=== PATIENT | female | born 1990 | race American Indian/Alaskan Native ===

== ENCOUNTER 2017-04-11 09:51 | Emergency (ER) | payer OTHER ==
[2017-04-11 10:41] VITALS: BP 118/74
--- NOTE | 2017-04-11 10:41 | Emergency Department Report ---
Chief Complaint: Headache Stated Complaint: MIGRAINES,DIARRHEA,BACK PAIN Time Seen by Provider: 04/11/17 10:38 - HPI History of Present Illness: PT c/o "migraine" from 04-05-17- 04-09-17. PT thought her cycle was going to start, it did not. PT states she developed abd pain, lower back pain. PT states she took two home tests and they were both negative. - ROS Review of Systems: + concern for - barboza (today) + abd pain - dysuria + diarrhea - Exam Physical Exam: PT looks well, non toxic gcs 15, steady gait MSE screening note: Focused history and physical exam performed. Due to findings the following was ordered: labs ED Disposition for MSE Condition: Stable
[2017-04-11 10:54] LABS: Basophils % (Auto) 0.4 % (0.0-1.8); Eosinophils % (Auto) 3.4 % (0.0-4.3); Hematocrit 39.7 % (30.3-42.9); Hemoglobin 13.1 gm/dl (10.1-14.3); Mean Corpuscular HGB Conc 33 % (30-34); Mean Corpuscular Volume 75 fl (79-97); Platelet Count 209 K/mm3 (140-440); Red Blood Count 5.27 M/mm3 (3.65-5.03); Red Cell Distribution Width 18.6 % (13.2-15.2); White Blood Count 6.1 K/mm3 (4.5-11.0)
[2017-04-11 10:55] LABS: Mean Corpuscular Hemoglobin 25 pg (28-32)
[2017-04-11 11:25] LABS: Alanine Aminotransferase 19 units/L (7-56); Albumin 4.6 g/dL (3.9-5); Albumin/Globulin Ratio 1.5 %; Alkaline Phosphatase 55 units/L (35-129); Anion Gap 16 mmol/L; Blood Urea Nitrogen 15 mg/dL (7-17); Calcium 9.6 mg/dL (8.4-10.2); Carbon Dioxide 26 mmol/L (22-30); Chloride 101.7 mmol/L (98-107); Glucose 116 mg/dL (65-100); Lipase 25 units/L (13-60); Potassium 4.4 mmol/L (3.6-5.0); Sodium 139 mmol/L (137-145); Total Protein 7.7 g/dL (6.3-8.2)
[2017-04-11 11:32] LABS: Bilirubin,Urine NEG (Negative); Blood,Urine NEG (Negative); Ketones,Urine NEG (Negative); Leukocyte Esterase,Urine NEG (Negative); Mucus,Urine FEW /HPF; Nitrite,Urine NEG (Negative); Protein,Urine <15 mg/dL mg/dL (Negative); Urobilinogen,Urine < 2.0 mg/dL (<2.0)
--- NOTE | 2017-04-11 15:30 | XRay Report ---
Abdomen 2 views: History: Abdominal pain, diarrhea. Findings: No radiopaque calculus or abnormal calcification. No bowel distention or wall thickening. Impression: Essentially negative abdomen.
[2017-04-11] MEDS ORDERED: TORADOL IM ONE (15:38)
[2017-04-11] MEDS ORDERED: NORCO 5/325 PO ONE (15:38)
[2017-04-11] MEDS ORDERED: BENTYL PO ONE (15:38)
--- NOTE | 2017-04-11 16:41 | Emergency Department Report ---
ED Abdominal Pain HPI - General Chief Complaint: Abdominal Pain Stated Complaint: MIGRAINES,DIARRHEA,BACK PAIN Time Seen by Provider: 04/11/17 10:38 Source: patient Mode of arrival: Ambulatory Limitations: No Limitations - History of Present Illness Initial Comments: 26 year old female presents to ED with abdominal pain x1 week. patient states pain is generalized but more present in umbilical region. patient states she has had diarrhea for a couple of days which is beginning to resolve. patient denies nausea, vomiting, chest pain, dysuria, vaginal discharge or bleeding. patient denies any use of antibiotics recently. patient is stable, neurologically intact and in no acute distress. MD Complaint: abdominal pain -: Gradual, week(s) Location: diffuse, periumbilical Radiation: none Severity: mild Severity scale (0 -10): 0 Quality: cramping Consistency: constant Improves With: nothing Worsens With: nothing Associated Symptoms: diarrhea. denies: nausea, vomiting, fever, chills, dysuria , hematuria, syncope - Related Data Previous Rx's Medication Instructions Recorded Last Taken Type Dicyclomine [Bentyl] 20 mg PO QID #20 capsule 04/11/17 Unknown Rx Loperamide HCl [Imodium A-D] 2 mg PO DAILY #6 tablet 04/11/17 Unknown Rx Allergies Allergy/AdvReac Type Severity Reaction Status Date / Time No Known Allergies Allergy Verified 04/11/17 10:44 ED Review of Systems ROS: Stated complaint: MIGRAINES,DIARRHEA,BACK PAIN Other details as noted in HPI Constitutional: denies: chills, fever Eyes: denies: eye pain, eye discharge, vision change ENT: denies: ear pain, throat pain Respiratory: denies: cough, shortness of breath, wheezing Cardiovascular: denies: chest pain, palpitations Endocrine: no symptoms reported Gastrointestinal: abdominal pain, diarrhea. denies: nausea, vomiting, hematemesis, melena, hematochezia Genitourinary: denies: urgency, dysuria, discharge Musculoskeletal: denies: back pain, joint swelling, arthralgia Skin: denies: rash, lesions Neurological: denies: headache, weakness, paresthesias Psychiatric: denies: anxiety, depression Hematological/Lymphatic: denies: easy bleeding, easy bruising ED Past Medical Hx - Past Medical History Previous Medical History?: Yes Hx Asthma: Yes (as child) Additional medical history: anemia - Surgical History Past Surgical History?: Yes Additional Surgical History: leep - Social History Smoking Status: Never Smoker Substance Use Type: None - Medications Home Medications: Home Medications Medication Instructions Recorded Confirmed Last Taken Type Dicyclomine [Bentyl] 20 mg PO QID #20 capsule 04/11/17 Unknown Rx Loperamide HCl [Imodium A-D] 2 mg PO DAILY #6 tablet 04/11/17 Unknown Rx ED Physical Exam - General Limitations: No Limitations General appearance: alert, in no apparent distress - Head Head exam: Present: atraumatic, normocephalic - Eye Eye exam: Present: normal appearance - ENT ENT exam: Present: mucous membranes moist - Neck Neck exam: Present: normal inspection - Respiratory Respiratory exam: Present: normal lung sounds bilaterally. Absent: respiratory distress - Cardiovascular Cardiovascular Exam: Present: regular rate, normal rhythm. Absent: systolic murmur, diastolic murmur, rubs, gallop - GI/Abdominal GI/Abdominal exam: Present: soft, normal bowel sounds. Absent: distended, tenderness, guarding, rebound, rigid, mass, pulsatile mass - Extremities Exam Extremities exam: Present: normal inspection, full ROM - Back Exam Back exam: Present: normal inspection, full ROM. Absent: tenderness - Neurological Exam Neurological exam: Present: alert, oriented X3, normal gait - Psychiatric Psychiatric exam: Present: normal affect, normal mood - Skin Skin exam: Present: warm, dry, intact, normal color. Absent: rash ED Course Vital Signs 04/11/17 04/11/17 10:39 15:03 Temperature 97.7 F Pulse Rate 70 Respiratory 16 16 Rate Blood Pressure 118/74 O2 Sat by Pulse 100 Oximetry ED Medical Decision Making - Lab Data Result diagrams: 04/11/17 10:47 04/11/17 10:47 Labs 04/11/17 04/11/17 04/11/17 10:47 10:47 10:47 WBC 6.1 RBC 5.27 H Hgb 13.1 Hct 39.7 MCV 75 L MCH 25 L MCHC 33 RDW 18.6 H Plt Count 209 Lymph % (Auto) 38.1 H Fajardo % (Auto) 7.1 Eos % (Auto) 3.4 Baso % (Auto) 0.4 Lymph # 2.3 Fajardo # 0.4 Eos # 0.2 Baso # 0.0 Seg Neutrophils % 51.0 Seg Neutrophils # 3.1 Sodium 139 Potassium 4.4 Chloride 101.7 Carbon Dioxide 26 Anion Gap 16 BUN 15 Creatinine 0.5 L Estimated GFR > 60 BUN/Creatinine Ratio 30.00 Glucose 116 H Calcium 9.6 Total Bilirubin 0.30 AST 17 ALT 19 Alkaline Phosphatase 55 Total Protein 7.7 Albumin 4.6 Albumin/Globulin Ratio 1.5 Lipase 25 HCG, Qual Negative Urine Color Urine Turbidity Urine pH Ur Specific Rossiter Urine Protein Urine Glucose (UA) Urine Ketones Urine Blood Urine Nitrite Urine Bilirubin Urine Urobilinogen Ur Leukocyte Esterase Urine WBC (Auto) Urine RBC (Auto) U Epithel Cells (Auto) Urine Mucus 04/11/17 11:17 WBC RBC Hgb Hct MCV MCH MCHC RDW Plt Count Lymph % (Auto) Fajardo % (Auto) Eos % (Auto) Baso % (Auto) Lymph # Fajardo # Eos # Baso # Seg Neutrophils % Seg Neutrophils # Sodium Potassium Chloride Carbon Dioxide Anion Gap BUN Creatinine Estimated GFR BUN/Creatinine Ratio Glucose Calcium Total Bilirubin AST ALT Alkaline Phosphatase Total Protein Albumin Albumin/Globulin Ratio Lipase HCG, Qual Urine Color Straw Urine Turbidity Slightly-cloudy Urine pH 5.0 Ur Specific Rossiter 1.014 Urine Protein <15 mg/dl Urine Glucose (UA) Neg Urine Ketones Neg Urine Blood Neg Urine Nitrite Neg Urine Bilirubin Neg Urine Urobilinogen < 2.0 Ur Leukocyte Esterase Neg Urine WBC (Auto) 1.0 Urine RBC (Auto) 2.0 U Epithel Cells (Auto) 4.0 Urine Mucus Few - Radiology Data Radiology results: report reviewed XR 2 view abdomen: no bowel distention or wall thickening. essentially negative abdomen. - Medical Decision Making 26 year old female presents to ED with abdominal pain x1 week and diarrhea. patient unable to give sample for stool culture. patient has had no active diarrhea during ED visit. patient has no significant tenderness on examination. patient is stable, neurologically intact and in no acute distress. patient understands to return to ED if symptoms worsen or new symptoms develop. Critical care attestation.: If time is entered above; I have spent that time in minutes in the direct care of this critically ill patient, excluding procedure time. ED Disposition Clinical Impression: Gastroenteritis Disposition: [id number] TO HOME OR SELFCARE Is pt being admited?: No Does the pt Need Aspirin: No Condition: Stable Instructions: Abdominal Pain (ED) Prescriptions: Dicyclomine [Bentyl] 20 mg PO QID #20 capsule Loperamide HCl [Imodium A-D] 2 mg PO DAILY #6 tablet Referrals: PRIMARY CARE, [Primary Care Provider] - 3-5 Days
== END 2017-04-11 16:34 | disposition home or self-care (01) ==
LOC: ED 09:51
DX: K52.9 Noninfective gastroenteritis and colitis, unspecified (principal); J45.909 Unspecified asthma, uncomplicated; D64.9 Anemia, unspecified
CPT/HCPCS: 36415; 74020; 80053; 81001; 83690; 84703; 85025; 99284; J1885